=== PATIENT | female | born 1930 | race Caucasian/White ===

== ENCOUNTER 2016-12-30 20:09 | Inpatient (IN) | payer OTHER ==
[~2016-12-30] VITALS: Ht 165.1 cm; Wt 59.0 kg
--- NOTE | ~2016-12-30 | EKG ---
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 : 1930 Requested By: Jarrett Krishna Order Number: [id number] MD: Jacky Villanueva Measurements Intervals [place] Rate: 81 P: 62 CT: 151 QRS: 132 QRSD: 69 T: 44 QT: 532 QTc: 618 Interpretive Statements Sinus rhythm Multiple premature complexes, supraven Low voltage with right axis deviation Prolonged QT interval Compared to ECG 09/12/2016 04:18:52 Atrial fibrillation no longer present ST (T wave) deviation no longer present Electronically Signed On 12-31-2016 12:34:30 CDT by Jacky Villanueva [email or web address] <ELECTRONICALLY SIGNED> By: Jacky Villanueva MD 12/31/16 1234 03 03 Jacky Villanueva MD /EPI
--- NOTE | ~2016-12-30 | H ---
[facility] [place] [address] HISTORY AND PHYSICAL Name: CONCEPCIÓN RIDDLE Room #: 535-P ADM IN .R.#: [id number] Admission: 12/30/16 Attend Phys: Kamaljit Chowdhury Discharge: Date of : 29 Report #: [id number] THIS REPORT FOR: //name// CC: Govind Serrano DATE OF SERVICE: 12/30/2016 ATTENDING PHYSICIAN: Dr. Hartley. PRIMARY CARE PHYSICIAN: Unknown. CHIEF COMPLAINT: Right hip pain. HISTORY OF PRESENT ILLNESS: The patient is an 86-year-old female who fell at home this evening after a mechanical fall and had right hip pain. She states she was going into her kitchen and she tripped over her dog and landed on her bottom and right hip. She says she landed very hard and felt a little dazed afterwards, but did not hit her head or lose consciousness. She was unable to get up because of right hip pain, but she was able to scooch herself on her bottom into the other room where her was sleeping and called for help. He helped her get up, but she was unable to bear weight and therefore they brought her into the ER. She was found to have a right hip fracture and has been admitted for surgical evaluation. She does have mild dementia. So, overall she is a poor history, but some previous records were reviewed. She says she has not been having any recent illness such as nausea, vomiting, cough or congestion. She denies any fevers or chills. She denies any recent chest pain or shortness of breath. She is currently resting comfortably after some pain medications. PAST MEDICAL HISTORY: Hypertension, hiatal hernia, hypothyroidism, mild dementia. PAST SURGICAL HISTORY: Appendectomy, right shoulder repair. ALLERGIES: None. HOME MEDICATIONS: Lisinopril 5 mg daily, levothyroxine 0.75 mg daily, amlodipine 10 mg daily, omeprazole 20 mg daily, hydrochlorothiazide 25 mg daily, aspirin 81 mg daily, Exelon patch 4.6 mg daily. SOCIAL HISTORY: The patient denies any tobacco, alcohol or drug use. She lives at home with her spouse. She normally walks independently. FAMILY HISTORY: Noncontributory due to advanced age. [address] [address] HISTORY AND PHYSICAL Name: CONCEPCIÓN RIDDLE Room #: 535-P [facility] IN .R.#: [id number] Admission: 12/30/16 Attend Phys: Kamaljit Chowdhury Discharge: Date of : 29 Report #: [id number] REVIEW OF SYSTEMS: A 12-point review of systems was reviewed with the patient, otherwise negative unless stated in the HPI. PHYSICAL EXAMINATION: GENERAL: The patient is an alert female in no acute distress. VITAL SIGNS: Temperature is 36.7, heart rate 81, respirations 18, blood pressure 91/62, oxygen 96% on room air. HEENT: PERRLA. Sclerae are nonicteric. Oral mucosa is pink and moist. NECK: Supple, no JVD noted. CARDIAC: Normal S1, S2. No murmurs, rubs or gallops. RESPIRATORY: Breath sounds are clear bilaterally, breathing is nonlabored. ABDOMEN: Soft, nontender, nondistended, positive bowel sounds. VASCULAR: Trace bilateral lower extremity edema. Pedal pulses are 2+. NEUROLOGIC: The patient is alert. She is oriented x3. Overall, she is a poor historian, but she is able to follow commands. She is unable to move her left leg, but she is moving all other extremities equally. LABORATORY DATA AND DIAGNOSTICS: WBC is 20.2, hemoglobin 12.2 and platelets 239. Sodium 136, potassium 3.5, BUN 19, creatinine 1.5 and glucose is 134. Chest x-ray showed an opacity in the left lung base, could represent hiatal hernia or moderate infiltrate and CT of the pelvis shows a subcapital femoral neck fracture with slight comminution. ASSESSMENT AND PLAN: 1. Right hip fracture after a fall. The patient has been admitted for surgical evaluation. Orthopedic surgery is consulted, continue with pain control. 2. Urinary tract infection: The patient does have associated leukocytosis. Urine will be sent for culture. We will start Rocephin. 3. History of hypertension: The patient is currently mildly hypotensive, possibly due to infection. We will add IV fluids and hold blood pressure medications. 4. Hypothyroidism: Continue Synthroid. 5. Mild acute kidney injury: Previous creatinine was 1.3. We will gently hydrate and follow labs. 6. DVT prophylaxis, place SCDs. We will continue to follow the patient closely throughout the hospitalization and make changes based on clinical status. <ELECTRONICALLY SIGNED> By: DORETHA Stanton 01/03/17 0658 1038 1128 DORETHA Stanton /josefina
--- NOTE | ~2016-12-30 | O ---
[facility] [place] [address] [place] [address] OPERATIVE REPORT Name: CONCEPCIÓN RIDDLE Room #: 535-P [facility] IN .R.#: [id number] Admission: 12/30/16 Attend Phys: Govind Hartley MD Discharge: Date of : 29 Report #: [id number] THIS REPORT FOR: //name// CC: Govind Serrano DATE OF SERVICE: 12/30/2016 PREOPERATIVE DIAGNOSIS: Right displaced femoral neck fracture. POSTOPERATIVE DIAGNOSIS: Right displaced femoral neck fracture. PROCEDURE: Right hip hemiarthroplasty. SURGEON: Wicho Pace MD. RECRUITER ACCOUNT MANAGER: Umu Hawk PA-C. ANESTHESIA: General endotracheal. IMPLANTS: Marin [employer] Nephew size 11 Conquest cemented stem, a size 46+0 cobalt chrome unipolar head. ESTIMATED BLOOD LOSS: 50 mL. COMPLICATIONS: None. SPECIMENS: None. CONDITION UPON LEAVING THE OPERATING ROOM: Stable. INDICATIONS FOR PROCEDURE: The patient is an 86-year-old female, who fell and sustained a right displaced femoral neck fracture. After discussion with her, she elected for right hip hemiarthroplasty. DESCRIPTION OF PROCEDURE: Risks, benefits, alternatives, and complications were discussed in detail with the patient including but not limited to risk of anesthesia, risk of damage to nerves, arteries, blood vessels, risk for infection, bleeding, risk for leg length discrepancy, instability and need for reoperation. An informed consent was obtained from the patient. The right hip was appropriately marked in the preoperative holding area. IV Ancef was given for preoperative antibiotics. She was brought to the operating room and placed in the supine position on the operating room table. General endotracheal anesthesia was induced without complication. She was then placed in the left lateral decubitus position with the right hip uppermost. Right hip and lower extremity were prepped and draped in the normal sterile fashion. A timeout was [address] [address] OPERATIVE REPORT Name: CONCEPCIÓN RIDDLE Room #: 535-P [facility] IN [facility].#: [id number] Admission: 12/30/16 Attend Phys: Govind Hartley MD Discharge: Date of : 29 Report #: [id number] performed, properly identifying the patient and procedure, as well as the instrumentation. All in the operating room were in agreement. Standard posterior approach to the hip was made with #10 blade through the skin. Dissection was taken down to the fascia with Bovie cautery, and Perea elevator was used to clean off the fascia. A fresh #10 blade was used to make a fascial incision. This was taken proximally and distally with curved Chávez scissor. Charnley retractor was placed. The piriformis tendon was identified, tagged, and taken down with Bovie. Short external rotators were also taken down with Bovie cautery. The capsulotomy was made, and capsular ends were tagged for later repair. The hip was dislocated. There was an obvious femoral neck fracture, and the head was removed. A femoral neck cut was made to freshen up the fracture site, and the head was sized, and found to be of size 44. Size 44 trial head was placed in the acetabulum and found to have a good fit. Attention was turned to the femur. This was reamed and broached up to a size 13. At which point, the size 13 broach was stable. A standard offset neck was placed and a 44+0 head was placed. Hip was reduced, taken through range of motion, found to be stable, and found to have equal leg lengths. Broach was removed and a size 11 Conquest stem was cemented in to place using standard cementation techniques. After the cement cured, this was trialed with a 44+0 head. Hip was reduced, taken through range of motion, found to be stable, found to have equal leg lengths. Hip was dislocated again, and a final size 44+0 cobalt chrome unipolar head was placed. Hip again was reduced, taken through range of motion, found to be stable, found to have equal leg lengths. The wound was thoroughly irrigated with normal saline. Periarticular injection consisting of morphine, ropivacaine, Toradol, and epinephrine was placed around the hip joint. The capsule and piriformis were repaired with 0 FiberWire. The fascia was closed with 0 Vicryl, skin was closed with 2-0 Vicryl and 3-0 Monocryl. Dermabond and Aquacel dressing were applied. The patient tolerated this procedure well, and went to the recovery room under the care of anesthesia postoperatively. <ELECTRONICALLY SIGNED> By: Wicho Pace MD 01/02/17 0637 1255 1420 Wicho Pace MD /nt
[~2016-12-30 20:09] MED LIST: ADULT LOW DOSE81 MG PO; AMOXICILLIN 50500 M1 PO; CARDIZEM CD 18180 M3 PO; EXELON1 EACH TRANSDERM; HYDROCHLOROTHIA25 M2 PO; K-TAB10 MEQ PO; LASIX 20 MG TAB20 MG PO; LEVOTHYROXIN0.075 MG PO; LEVOTHYROXINE 0.1 MG PO; NORVASC10 MG PO; OMEPRAZOLE20 M1 PO; ZESTRIL5 MG PO; ZOCOR20 MG PO
[2016-12-30 20:11] VITALS: BP 91/62
[2016-12-30] MEDS ORDERED: OMEPRAZOLE20 M2 PO (20:39)
[2016-12-30] MEDS ORDERED: AMLODIPINE BESY10 MG PO (20:39)
[2016-12-30] MEDS ORDERED: PRINIVIL5 MG PO (20:39)
[2016-12-30] MEDS ORDERED: SYNTHROID75 MCG PO (20:39)
[2016-12-30] MEDS ORDERED: HYDROCHLOROTHIA25 M2 PO (20:40)
[2016-12-30 21:03] LABS: HEMATOCRIT 38.7 % (37.0-47.0); HEMOGLOBIN 12.2 gm/dL (12.0-15.0); MCH 26.9 pg (26.0-34.0); MCHC 31.7 g/dL (28.0-37.0); MCV 84.9 fL (80.0-100.0); PLATELET COUNT 239 thou/uL (150-400); RBC 4.55 mil/uL (4.20-5.00); RDW 16.6 % (10.5-14.5); WBC 20.2 thou/uL (4.0-11.0)
[2016-12-30 21:08] LABS: MANUAL DIFF YES
[2016-12-30 21:45] LABS: ABSOLUTE NEUTROPHILS 17.4 thou/uL (1.4-8.2); TOTAL CELL COUNT 100
[2016-12-30 21:47] LABS: CALCIUM 9.3 mg/dL (8.5-10.1); CREATININE 1.5 mg/dL (0.6-1.3); POTASSIUM 3.5 mmol/L (3.5-5.1)
[2016-12-30 22:32] LABS: URINE BILIRUBIN NEGATIVE (Negative); URINE BLOOD TRACE (Negative); URINE COLOR YELLOW; URINE GLUCOSE-RANDOM* NEGATIVE (Negative); URINE KETONES 1+ (Negative); URINE NITRITE POSITIVE (Negative); URINE PROTEIN (DIPSTICK) TRACE (Negative); URINE SPECIFIC GRAVITY 1.025 (1.003-1.035); URINE UROBILINOGEN 0.2 E.U./dl (0.2-1.0)
[2016-12-30 22:51] LABS: AMORPHOUS URATES Many /LPF (None Seen); CASTS None Seen /LPF (None Seen); CRYSTALS None Seen /LPF (None Seen); SQUAMOUS 4-10 Moderate /LPF (0-3)
[2016-12-30 22:52] LABS: BACTERIA >30 Many /HPF (None Seen); URINE RBC 0-2 Rare /HPF (0-2)
[2016-12-30 23:11] VITALS: BP 112/61
[2016-12-31] VITALS (7 sets, daily range): BP systolic 102–129; BP diastolic 56–89
[2016-12-31 14:10] LABS: HEMATOCRIT 39.2 % (37.0-47.0); HEMOGLOBIN 12.5 gm/dL (12.0-15.0); MCH 27.1 pg (26.0-34.0); MCHC 31.9 g/dL (28.0-37.0); MCV 84.9 fL (80.0-100.0); RBC 4.62 mil/uL (4.20-5.00); RDW 16.7 % (10.5-14.5); WBC 19.5 thou/uL (4.0-11.0)
[2017-01-01 03:40] LABS: HEMATOCRIT 36.2 % (37.0-47.0); HEMOGLOBIN 11.4 gm/dL (12.0-15.0); MCH 26.9 pg (26.0-34.0); MCHC 31.6 g/dL (28.0-37.0); MCV 85.4 fL (80.0-100.0); RBC 4.25 mil/uL (4.20-5.00); RDW 16.7 % (10.5-14.5); WBC 16.4 thou/uL (4.0-11.0)
[2017-01-01 03:56] LABS: CALCIUM 8.9 mg/dL (8.5-10.1); CREATININE 1.4 mg/dL (0.6-1.3)
[2017-01-01 07:30] VITALS: BP 115/61
[2017-01-01 12:35] VITALS: BP 125/74
[2017-01-01 16:25] VITALS: BP 113/61
[2017-01-01 19:12] VITALS: BP 122/64
[2017-01-02 03:21] VITALS: BP 144/91
[2017-01-02 04:32] LABS: HEMATOCRIT 35.3 % (37.0-47.0); HEMOGLOBIN 11.3 gm/dL (12.0-15.0); MCH 27.2 pg (26.0-34.0); RBC 4.15 mil/uL (4.20-5.00); RDW 16.8 % (10.5-14.5); WBC 12.4 thou/uL (4.0-11.0)
[2017-01-02 07:07] VITALS: BP 128/67
[2017-01-02 15:06] VITALS: BP 110/67
[2017-01-02 19:47] VITALS: BP 110/67
[2017-01-03 07:40] VITALS: BP 118/53
[2017-01-03] MEDS ORDERED: ENOXAPARIN30 MG/0.1 SUBQ (11:10)
[2017-01-03] MEDS ORDERED: HYDROCODON-ACE1 EAC7 PO (11:10)
[2017-01-03 16:37] VITALS: BP 126/52
== END 2017-01-03 16:55 | DRG 469 ==
LOC: ER 20:09 → 5S 22:22 → EROBS 22:22 → 5S 23:41
PROVIDERS: Internal Medicine; Nurse Practitioner; Orthopaedic Surgery
PROC: 0SRR019 Replacement of Right Hip Joint, Femoral Surface with Metal Synthetic Substitute, Cemented, Open Approach (ICD-10-PCS; principal; 2016-12-31)
DX: S72.011A Unspecified intracapsular fracture of right femur, initial encounter for closed fracture (principal); N17.0 Acute kidney failure with tubular necrosis; N39.0 Urinary tract infection, site not specified; G89.18 Other acute postprocedural pain; I10 Essential (primary) hypertension; F03.90 Unspecified dementia, unspecified severity, without behavioral disturbance, psychotic disturbance, mood disturbance, and anxiety; K21.9 Gastro-esophageal reflux disease without esophagitis; E03.9 Hypothyroidism, unspecified; W01.0XXA Fall on same level from slipping, tripping and stumbling without subsequent striking against object, initial encounter; Z90.49 Acquired absence of other specified parts of digestive tract; Z79.899 Other long term (current) drug therapy; Y93.89 Activity, other specified; Y92.090 Kitchen in other non-institutional residence as the place of occurrence of the external cause; Y99.8 Other external cause status
CPT/HCPCS: 10086; 50010; 50101; 51412; 53369; 62110; 62900; 70005

== ENCOUNTER 2017-01-15 22:41 | Inpatient (IN) | payer OTHER ==
[~2017-01-15] VITALS: Ht 165.1 cm; Wt 66.8 kg
--- NOTE | ~2017-01-15 | EKG ---
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 : 1930 Requested By: Juan Haddad Order Number: [id number] MD: Juan May Measurements Intervals [place] Rate: 91 P: 60 NV: 134 QRS: 147 QRSD: 80 T: 32 QT: 349 QTc: 430 Interpretive Statements Sinus rhythm Low voltage with right axis deviation Poor R wave progression Nonspecific ST and T wave abnormality Compared to ECG 12/30/2016 21:04:31 atrial premature complexes are no longer present Electronically Signed On 01-16-2017 8:35:40 CDT by Juan May [email or web address] <ELECTRONICALLY SIGNED> By: Juan May MD, [facility] 01/16/17 0835 2248 2248 Juan May MD, [facility] /EPI
--- NOTE | ~2017-01-15 | H ---
[facility] [place] [address] HISTORY AND PHYSICAL Name: JANESSACONCEPCIÓN Room #: 217-P ADM IN M.R.#: [id number] Admission: 01/16/17 Attend Phys: Berna Phan MD Discharge: Date of : 29 Report #: [id number] THIS REPORT FOR: //name// CC: Berna Serrano DATE OF SERVICE: 01/16/2017 ATTENDING PHYSICIAN: Kamaljit Chowdhury M.D. PRIMARY CARE PHYSICIAN: Jhony Serrano M.D. CHIEF COMPLAINT: "I passed out." HISTORY OF PRESENT ILLNESS: The patient is an 86-year-old female who was just hospitalized here at [facility] in the end of December after a fall in which she had a right hip fracture. She did undergo a nailing and was discharged on 01/03 to a rehab facility. She said she was there a few weeks and now has been back at home for only a few days. The patient does have mild dementia and overall is a very poor historian. She does not know much of the details from last night, but she says she was having some diarrhea the last few days. She said "I had to stay close to the bathroom because I was going so much." She said yesterday evening she went to the bathroom to have a bowel movement, and the next thing she remembers is waking up on the floor. Her son was able to get her up. She is not sure how long she was out. She does not think she had any injury when she fell. She has noticed since she left that she has had increasing lower extremity edema. She does not have any prior history of CHF. She denied any dizziness or chest pain since arrival to the ER. She has had multiple loose stools. The patient does not think she has been having any blood in her stools. She is not sure if she has been having any fevers. She was noted to have a UTI and has been admitted for antibiotics. PAST MEDICAL HISTORY: Hypertension, ____, recent hip fracture, hypothyroidism and mild dementia. PAST SURGICAL HISTORY: Appendectomy, right shoulder repair and skin graft. ALLERGIES: None. HOME MEDICATIONS: Lisinopril 5 mg daily, levothyroxine 0.075 mg daily, amlodipine 10 mg daily, omeprazole 20 mg daily and hydrochlorothiazide 25 mg weekly. SOCIAL HISTORY: The patient lives at home with her spouse and son. She has been ambulating with a walker since rehab. She denies any tobacco, alcohol or drug use. [address] [address] HISTORY AND PHYSICAL Name: JANESSACONCEPCIÓN Room #: 217-P [facility] IN [facility].#: [id number] Admission: 01/16/17 Attend Phys: Berna Phan MD Discharge: Date of : 29 Report #: [id number] FAMILY HISTORY: Noncontributory due to advanced age. REVIEW OF SYSTEMS: A 12-point review of systems was attempted with the patient, and otherwise negative unless stated in the HPI. PHYSICAL EXAMINATION: GENERAL: The patient is an alert, mildly confused female in no acute distress. VITAL SIGNS: Temperature is 37.2, heart rate 92, respirations 18, blood pressure is 102/40 and oxygen is 98% on 2 liters. HEENT: PERRLA. Sclerae are nonicteric. Oral mucosa is pink and moist. NECK: Supple, no JVD noted. CARDIOVASCULAR: Normal S1 and S2 with a 2/6 systolic ejection murmur. RESPIRATORY: Breath sounds are clear bilaterally. No wheezing and no rhonchi. Breathing is nonlabored. ABDOMEN: Soft, nontender and nondistended with positive bowel sounds. MUSCULOSKELETAL: She does have a healing right hip incision, which is clean, dry and intact. VASCULAR: She does have 3+ bilateral lower extremity pitting edema, slightly worse on the right than the left. Pedal pulses are 2+. NEUROLOGIC: The patient is alert and oriented to self. She is able to follow commands. She was able to move her arms equally. LABORATORY AND DIAGNOSTIC DATA: WBC is 17.8, hemoglobin 9.7 and platelets 326. Sodium 136, potassium 3.9, BUN is 29, creatinine 1.7 and glucose 146. Troponins negative. BNP is 337. EKG showed sinus rhythm with some PACs and UA showed a UTI. ASSESSMENT AND PLAN: 1. Syncope. Some effect of vasovagal event as she was on the toilet when this occurred. We will continue to monitor her on telemetry for any arrhythmias. She was also noted to have a urinary tract infection, which may have contributed. 2. Urinary tract infection. Urine has been sent for culture. Continue intravenous antibiotics. 3. Diarrhea. Stool has been sent for Clostridium difficile as she was recently in the hospital and did receive antibiotics for urinary tract infection at that time. 4. Recent right hip fracture status post nailing. We will continue with physical therapy. 5. Acute kidney injury. Her last creatinine was 1.4 on 01/01. We will hold her hydrochlorothiazide and lisinopril, but hold off on any aggressive toilet because of the edema. 6. Anemia. This is likely postoperative drop in hemoglobin. No signs of active bleeding. Follow labs. 7. Hypertension. Blood pressure is stable. Continue amlodipine but hold [facility] [address] [place] [address] HISTORY AND PHYSICAL Name: CONCEPCIÓN PHAN Room #: 217-P ADM IN M.R.#: [id number] Admission: 01/16/17 Attend Phys: Berna Phan MD Discharge: Date of : 29 Report #: [id number] lisinopril and hydrochlorothiazide because of elevated creatinine. 8. Hypothyroidism. Continue Synthroid. 9. Mild dementia. 10. Deep venous thrombosis prophylaxis, place sequential compression devices. We will continue to follow the patient closely throughout the hospitalization and make changes based on clinical status. <ELECTRONICALLY SIGNED> By: DORETHA Stanton 01/17/17 0608 1015 1801 DORETHA Stanton /nt
--- NOTE | ~2017-01-15 | 2DMMODE ---
[facility] [address] [place] [address] 2 D/M-MODE ECHOCARDIOGRAM Name: PHANCONCEPCIÓN Room #: 217-P ADM IN .R.#: [id number] Admission: 01/16/17 Attend Phys: Berna Phan MD Discharge: Date of : 29 Date of Service: 01/16/17 1309 Report #: [id number] THIS REPORT FOR: //name// APPROVED REPORT Study performed: 01/16/2017 11:56:38 EXAM: Comprehensive 2D, Doppler, and color-flow Echocardiogram Patient Location: Bedside Blood Pressure: 117/62 mmHg HR: 88 bpm Other Information Study Quality: Fair Indications Dyspnea Syncope 2D Dimensions LVEF(%): 67.92 (>50%) IVSd: 8.48 (7-11mm) LVOT Diam: 17.98 (18-24mm) LVDd: 31.07 mm PWd: 8.66 (7-11mm) Ascending Aorta: 24.82 mm LVDs: 19.69 (25-40mm) IVC: 10.00 mm Aortic Root: 25.90 mm Zapata's LVEF: 67.92 % Aortic Valve AoV Peak Clyde.: 1.61 m/s AO Peak Gr.: 10.38 mmHg LV Max P.81 mmHg LV Max: 1.10 m/s Mitral Valve MV PHT: 86.60 ms MV E Max Clyde.: 1.05 m/s E/A Ratio: 0.9 MV A Clyde.: 1.23 m/s MV Decel. Time: 298.64 ms Pulmonary Valve PV Peak Clyde.: 1.17 m/s PV Peak Gr.: 5.43 mmHg Tricuspid Valve [facility] [address] [place] [address] 2 D/M-MODE ECHOCARDIOGRAM Name: CONCEPCIÓN PHAN Room #: 217-P ADM IN [facility].#: [id number] Admission: 01/16/17 Attend Phys: Berna Phan MD Discharge: Date of : 29 Date of Service: 01/16/17 1309 Report #: [id number] TR Peak Clyde.: 3.77 m/s RAP Estimate: 5.00 mmHg TR Peak Gr.: 56.91 mmHg Left Ventricle The left ventricle is normal size. There is normal LV segmental wall motion. There is normal left ventricular wall thickness. The left ventricular systolic function is normal. The left ventricular ejection fraction is within the normal range. LVEF is 60-65%. Grade I - abnormal relaxation pattern. Right Ventricle The right ventricle is normal size. The right ventricular systolic function is normal. Atria The left atrium size is normal. The right atrium size is normal. Aortic Valve The aortic valve is grossly normal in structure. No aortic regurgitation is present. There is no aortic valvular stenosis. Mitral Valve The mitral valve is normal in structure. Trace mitral regurgitation. There is no mitral valve stenosis. Tricuspid Valve The tricuspid valve is normal in structure. Pulmonary artery pressure of 60mmHg. Mild tricuspid regurgitation. Pulmonic Valve The pulmonary valve is normal in structure. There is no pulmonic valvular regurgitation. Great Vessels The aortic root is normal in size. IVC is normal in size and collapses >50% with inspiration. Pericardium There is no pericardial effusion. <Conclusion> The left ventricular systolic function is normal. There is normal LV segmental wall motion. Grade I diastolic dysfunction [facility] [place] [address] 2 D/M-MODE ECHOCARDIOGRAM Name: PHANCONCEPCIÓN Room #: 217-P [facility] IN .R.#: [id number] Admission: 01/16/17 Attend Phys: Berna Phan MD Discharge: Date of : 28 Date of Service: 01/16/17 1309 Report #: [id number] The aortic valve is grossly normal in structure. There is no aortic valvular stenosis or insufficiency. The mitral valve is normal in structure. Trace mitral regurgitation. Pulmonary artery pressure of 60mmHg. There is no pericardial effusion. <ELECTRONICALLY SIGNED> By: Juan May MD, FAC 01/16/17 1309 08 1309 Juan May MD, FACC /INF
[~2017-01-15 22:41] MED LIST changes: +AMLODIPINE BESY10 MG PO; +ENOXAPARIN30 MG/0.1 SUBQ; +HYDROCODON-ACE1 EAC7 PO; +OMEPRAZOLE20 M2 PO; +PRINIVIL5 MG PO; +SYNTHROID75 MCG PO
[2017-01-15 22:43] VITALS: BP 102/40
[2017-01-15 23:07] LABS: HEMATOCRIT 30.5 % (37.0-47.0); HEMOGLOBIN 9.7 gm/dL (12.0-15.0); MCH 26.9 pg (26.0-34.0); MCHC 31.8 g/dL (28.0-37.0); MCV 84.6 fL (80.0-100.0); PLATELET COUNT 326 thou/uL (150-400); RDW 17.7 % (10.5-14.5); WBC 17.8 thou/uL (4.0-11.0)
[2017-01-15 23:16] LABS: MANUAL DIFF YES
[2017-01-15 23:27] LABS: ANION GAP 13 mmol/L (7-16); BUN 29 mg/dL (7-18); CALCIUM 9.3 mg/dL (8.5-10.1); CHLORIDE 101 mmol/L (98-107); CO2 22 mmol/L (21-32); CREATININE 1.7 mg/dL (0.6-1.0); GLUCOSE 146 mg/dL (74-106); NT-PRO BRAIN NAT PEPTIDE 337 pg/mL (<300); POTASSIUM 3.9 mmol/L (3.5-5.1); SODIUM 136 mmol/L (136-145); TROPONIN-I < 0.04 ng/mL (<0.04-0.07)
[2017-01-16 00:08] LABS: ABSOLUTE NEUTROPHILS 16.4 thou/uL (1.4-8.2); ANISOCYTOSIS 2+; TOTAL CELL COUNT 100
[2017-01-16 00:09] LABS: HYPOCHROMASIA SLIGHT
[2017-01-16 01:35] LABS: URINE BILIRUBIN NEGATIVE (Negative); URINE BLOOD 2+ (Negative); URINE COLOR YELLOW; URINE GLUCOSE-RANDOM* NEGATIVE (Negative); URINE KETONES NEGATIVE (Negative); URINE LEUKOCYTES-REFLEX TRACE (Negative); URINE PROTEIN (DIPSTICK) 1+ (Negative)
[2017-01-16 01:50] VITALS: BP 125/59
[2017-01-16 01:54] LABS: HYALINE CASTS >10 Many /LPF (None Seen); SQUAMOUS 4-10 Moderate /LPF (0-3)
[2017-01-16 01:55] LABS: URINE RBC 3-10 Few /HPF (0-2)
[2017-01-16 01:56] LABS: CRYSTALS None Seen /LPF (None Seen)
[2017-01-16 02:10] VITALS: BP 124/62
[2017-01-16 07:57] VITALS: BP 117/62
[2017-01-16 10:10] LABS: % SATURATION 9 % (20-39); IRON 31 ug/dL (50-170); TIBC 342 ug/dL (250-450); UIBC 311 ug/dL
[2017-01-16 10:37] LABS: FOLIC ACID 17.3 ng/mL (8.6-58.9)
[2017-01-16 11:13] VITALS: BP 104/59
[2017-01-16 16:51] VITALS: BP 100/59
[2017-01-16 19:25] VITALS: BP 113/61
[2017-01-17 03:46] VITALS: BP 109/54
[2017-01-17 07:13] VITALS: BP 107/61
[2017-01-17 08:27] LABS: HEMATOCRIT 28.3 % (37.0-47.0); HEMOGLOBIN 9.2 gm/dL (12.0-15.0); MCH 27.2 pg (26.0-34.0); MCHC 32.4 g/dL (28.0-37.0); MCV 84.2 fL (80.0-100.0); PLATELET COUNT 322 thou/uL (150-400); RBC 3.37 mil/uL (4.20-5.00); RDW 17.5 % (10.5-14.5); WBC 11.9 thou/uL (4.0-11.0)
[2017-01-17 08:39] LABS: CALCIUM 8.1 mg/dL (8.5-10.1); POTASSIUM 3.7 mmol/L (3.5-5.1)
[2017-01-17 08:43] LABS: MANUAL DIFF YES
[2017-01-17 09:32] LABS: ABSOLUTE NEUTROPHILS 10.4 thou/uL (1.4-8.2); TOTAL CELL COUNT 100
[2017-01-17 09:33] LABS: ANISOCYTOSIS 1+; OVALOCYTES 1+
[2017-01-17 11:10] VITALS: BP 100/54
[2017-01-17 19:33] VITALS: BP 113/65
[2017-01-18 03:44] VITALS: BP 115/70
[2017-01-18 03:59] LABS: HEMATOCRIT 26.7 % (37.0-47.0); HEMOGLOBIN 8.6 gm/dL (12.0-15.0); MCH 27.2 pg (26.0-34.0); MCHC 32.2 g/dL (28.0-37.0); MCV 84.3 fL (80.0-100.0); RBC 3.17 mil/uL (4.20-5.00); RDW 17.5 % (10.5-14.5); WBC 9.3 thou/uL (4.0-11.0)
[2017-01-18 04:00] VITALS: BP 107/65
[2017-01-18 04:04] LABS: CALCIUM 7.9 mg/dL (8.5-10.1); CREATININE 0.9 mg/dL (0.6-1.0); POTASSIUM 3.4 mmol/L (3.5-5.1)
[2017-01-18 07:23] VITALS: BP 104/62
[2017-01-18 10:47] VITALS: BP 119/61
[2017-01-18 19:08] VITALS: BP 120/63
[2017-01-19 05:16] VITALS: BP 124/77
[2017-01-19 08:41] VITALS: BP 126/90
[2017-01-19] MEDS ORDERED: FLAGYL500 MG PO (11:58)
[2017-01-19] MEDS ORDERED: KEFLEX500 MG PO (11:59)
== END 2017-01-19 14:13 | DRG 871 ==
LOC: ER 22:41 → EROBS 01-16 01:22 → 2N 01-16 01:22 → EDBD 01-16 10:07 → 2N 01-19 14:13
PROVIDERS: Emergency Medicine; Hospitalist; Internal Medicine
DX: A41.9 Sepsis, unspecified organism (principal); N17.0 Acute kidney failure with tubular necrosis; A04.7 Enterocolitis due to Clostridium difficile; N39.0 Urinary tract infection, site not specified; A04.6 Enteritis due to Yersinia enterocolitica; R55 Syncope and collapse; E03.9 Hypothyroidism, unspecified; I10 Essential (primary) hypertension; F03.90 Unspecified dementia, unspecified severity, without behavioral disturbance, psychotic disturbance, mood disturbance, and anxiety; D64.9 Anemia, unspecified; Z96.611 Presence of right artificial shoulder joint; Z87.81 Personal history of (healed) traumatic fracture; Z79.899 Other long term (current) drug therapy; Z90.49 Acquired absence of other specified parts of digestive tract
CPT/HCPCS: 10081

== ENCOUNTER 2018-02-17 23:40 | Inpatient (IN) | payer OTHER ==
[~2018-02-17] VITALS: Ht 162.6 cm; Wt 59.0 kg
--- NOTE | ~2018-02-17 | EKG ---
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 : 1930 Requested By: Juan Haddad Order Number: [id number] MD: Juan May Measurements Intervals [place] Rate: 73 P: 92 VT: 132 QRS: 132 QRSD: 170 T: 46 QT: 391 QTc: 431 Interpretive Statements Sinus rhythm Occasional atrial premature complexes Poor R wave progression Low voltage QRS Compared to ECG 01/15/2017 22:48:44 Atrial premature complexes are now present Electronically Signed On 02-19-2018 7:58:26 CDT by Juan May [email or web address] <ELECTRONICALLY SIGNED> By: Juan May MD, [facility] 02/19/18 0758 2348 47 Juan May MD, [facility] /EPI
[~2018-02-17 23:40] MED LIST changes: +FLAGYL500 MG PO; +KEFLEX500 MG PO
[2018-02-17 23:42] VITALS: BP 134/77
[2018-02-18 00:02] LABS: ABSOLUTE NEUTROPHILS 4.1 thou/uL (1.4-8.2); BASOPHILS 1.4 % (0.0-2.0); EOSINOPHILS 2.2 % (0.0-3.0); HEMATOCRIT 38.2 % (37.0-47.0); HEMOGLOBIN 12.5 gm/dL (12.0-15.0); LYMPHOCYTES 34.2 % (24.0-44.0); MCH 28.5 pg (26.0-34.0); MCHC 32.6 g/dL (28.0-37.0); MCV 87.2 fL (80.0-100.0); MONOCYTES 10.9 % (1.0-8.0); PLATELET COUNT 299 thou/uL (150-400); POLYS 51.3 % (36.0-66.0); RBC 4.38 mil/uL (4.20-5.00); RDW 15.9 % (10.5-14.5); WBC 8.1 thou/uL (4.0-11.0)
[2018-02-18 00:10] LABS: ANION GAP 10 mmol/L (7-16); BUN 22 mg/dL (7-18); CALCIUM 9.7 mg/dL (8.5-10.1); CHLORIDE 101 mmol/L (98-107); CO2 28 mmol/L (21-32); CREATININE 1.7 mg/dL (0.6-1.0); GLUCOSE 102 mg/dL (74-106); SODIUM 139 mmol/L (136-145)
[2018-02-18 00:20] LABS: TROPONIN-I < 0.04 ng/mL (<0.06)
[2018-02-18 03:47] VITALS: BP 151/77
[2018-02-18 04:23] VITALS: BP 148/65
[2018-02-18 07:06] LABS: CREATININE 1.5 mg/dL (0.6-1.0); POTASSIUM 4.3 mmol/L (3.5-5.1)
[2018-02-18 08:13] VITALS: BP 129/66
[2018-02-18 12:22] VITALS: BP 126/71
[2018-02-18 16:12] VITALS: BP 138/60
[2018-02-18 20:00] VITALS: BP 131/56
[2018-02-19 08:50] VITALS: BP 116/56
[2018-02-19 20:00] VITALS: BP 115/52; BP 118/60
[2018-02-20 03:00] VITALS: BP 116/64
[2018-02-20 08:14] VITALS: BP 138/75
[2018-02-20] MEDS ORDERED: SYNTHROID50 MCG PO (10:19)
[2018-02-20 12:46] VITALS: BP 138/75
[2018-02-20 15:14] VITALS: BP 119/64
== END 2018-02-20 17:04 | disposition home health service (06) | DRG 391 ==
LOC: ER 23:40 → EROBS 02-18 03:27 → 4N 02-18 03:27
PROVIDERS: Emergency Medicine; Nurse Practitioner Acute Care
DX: K44.9 Diaphragmatic hernia without obstruction or gangrene (principal); N17.1 Acute kidney failure with acute cortical necrosis; R41.89 Other symptoms and signs involving cognitive functions and awareness; E03.9 Hypothyroidism, unspecified; R53.81 Other malaise; R07.9 Chest pain, unspecified; I10 Essential (primary) hypertension; E78.5 Hyperlipidemia, unspecified; F03.90 Unspecified dementia, unspecified severity, without behavioral disturbance, psychotic disturbance, mood disturbance, and anxiety; I48.0 Paroxysmal atrial fibrillation; R13.10 Dysphagia, unspecified; Z79.899 Other long term (current) drug therapy
CPT/HCPCS: 10790